=== PATIENT | female | born 1990 | race Caucasian/White ===

== ENCOUNTER 2022-11-10 15:35 | Inpatient (IN) | payer OTHER ==
[2022-11-10] MEDS ORDERED: hydrALAZINE 20 MG/ML VIAL SLOW IVP PRN ×3 (16:10→21:00)
[2022-11-10 16:37] LABS: Fetal Membranes Rupture RUPTURE DETECTED (No Rupture)
[2022-11-10 16:39] VITALS: BMI 36.2
[2022-11-10] MEDS ORDERED: Penicillin G Potassium 5 MILL.UNITS VIAL ONE (17:04)
[2022-11-10] MEDS ORDERED: Diphenoxylate HCl/Atropine Tablet PO PRN (17:43)
[2022-11-10] MEDS ORDERED: Misoprostol 200 MCG TAB PR PRN (17:43)
[2022-11-10] MEDS ORDERED: Ibuprofen 800 MG TAB PO PRN (17:43)
[2022-11-10] MEDS ORDERED: Acetaminophen 500 MG TAB PO PRN (17:43)
[2022-11-10] MEDS ORDERED: fentaNYL 50 mcg/mL 1 mL Vial SLOW IVP PRN (17:43)
[2022-11-10] MEDS ORDERED: Methylergonovine 0.2 MG/ML VIAL IM PRN (17:43)
[2022-11-10] MEDS ORDERED: Promethazine HCl 25 MG/ML VIAL IM PRN (17:43)
[2022-11-10] MEDS ORDERED: Carboprost 250 MCG/ML AMP IM PRN (17:43)
[2022-11-10] MEDS ORDERED: Tranexamic Acid 1,000 MG/10 ML VIAL IVP PRN (17:43)
[2022-11-10] MEDS ORDERED: Ondansetron PF 4 MG/2 ML Vial IVP PRN (17:43)
[2022-11-10] MEDS ORDERED: Lidocaine 1% (PF) 30 ML VIAL SC PRN (17:43)
[2022-11-10] MEDS ORDERED: NS w/ Oxytocin 30 units 500 ML IV SCH ×2 (17:45)
[2022-11-10] MEDS ORDERED: Lactated Ringer's 1,000 ML IV SCH (17:45)
[2022-11-10 18:08] LABS: Hemoglobin 12.3 g/dL (12.0-15.5); Mean Corpuscular HGB CONC 33.9 g/dL (32.0-36.0); Mean Corpuscular Hemoglobin 30.6 pg (27.0-33.0); Mean Corpuscular Volume 90.3 fl (81.6-98.3); Mean Platelet Volume 10.1 fl (7.4-10.4); Platelet Count 285 10x3/uL (150-450); RBC Distribution Width 12.9 % (11.5-14.5); Red Blood Cell (RBC) Count 4.02 10x6/uL (3.90-5.03); White Blood Cell (WBC) Count 11.5 10x3/uL (3.5-10.5)
[2022-11-10 18:28] LABS: HBSAg Index 0.15 S/CO (0-0.99); Hep B Surf Ag - L&D Non-Reactive S/CO (NonReactive)
[2022-11-10] MEDS ORDERED: fentaNYL/Ropivacaine Epidural 100 ML ONE (18:37)
[2022-11-10] MEDS ORDERED: Lanolin Ointment 7 GM TUBE TOP PRN (21:00)
[2022-11-10] MEDS ORDERED: Bisacodyl 10 MG SUPP PR PRN (21:00)
[2022-11-10] MEDS ORDERED: Boostrix 0.5 ML (Tdap) VIAL (>/=7 yrs of age) IM ONE (21:00)
[2022-11-10] MEDS ORDERED: diphenhydrAMINE 25 MG CAP PO PRN (21:00)
[2022-11-10] MEDS ORDERED: Benzocaine-Menthol 82.5 ML CAN TOP PRN (21:00)
[2022-11-10] MEDS ORDERED: Milk Of Magnesia 30 ML UDCUP PO PRN (21:00)
[2022-11-10] MEDS ORDERED: Preparation H Ointment 28 GM TUBE PR PRN (21:00)
[2022-11-11] MEDS ORDERED: traMADol HCl 50 MG TAB PO PRN (00:02)
[2022-11-11] MEDS: Docusate 100 MG CAP PO SCH ×3 (00:04→21:30)
[2022-11-11] MEDS: Ibuprofen 800 MG TAB PO SCH ×4 (00:05→21:30)
[2022-11-11] MEDS ORDERED: Bupivacaine 0.25% HCL 30 ML VIAL ONE (06:00)
[2022-11-11] MEDS ORDERED: Lidocaine 2% MPF 10 ML AMP (For Epidural Use) ONE (06:00)
[2022-11-11] MEDS: Ferrous Sulfate 325 MG TAB PO SCH ×2 (07:51→17:38)
[2022-11-11] MEDS: Prenatal Vitamin 1 TAB PO SCH (09:28)
[2022-11-12] MEDS: Ibuprofen 800 MG TAB PO SCH ×2 (05:09→14:17)
[2022-11-12] MEDS: Docusate 100 MG CAP PO SCH (07:34)
[2022-11-12] MEDS: Prenatal Vitamin 1 TAB PO SCH (07:35)
[2022-11-12 07:47] VITALS: BP 110/63; TEMP 97.6
[2022-11-12] MEDS: Ferrous Sulfate 325 MG TAB PO SCH (11:17)
[2022-11-12 13:57] LABS: Syphilis Antibody Nonreactive (Nonreactive); Syphilis Antibody Index 0.05 S/CO (<1.00 Non-Reactive)
== END 2022-11-12 16:20 | disposition home or self-care (01) | DRG 807 ==
LOC: CSHLD/OP 15:35 → CSHLD 16:42 → CSHPP 23:10
PROVIDERS: ADMIT Obstetrics & Gynecology; ATTEND Obstetrics & Gynecology
PROC: 10E0XZZ Delivery of Products of Conception, External Approach (ICD-10-PCS; principal; 2022-11-10)
PROC: 0HQ9XZZ Repair Perineum Skin, External Approach (ICD-10-PCS; 2022-11-10)
DX: O42.02 Full-term premature rupture of membranes, onset of labor within 24 hours of rupture (principal); Z37.0 Single live birth; Z3A.39 39 weeks gestation of pregnancy; O70.0 First degree perineal laceration during delivery; O99.824 Streptococcus B carrier state complicating childbirth
CPT/HCPCS: 51702; 84112; 85027; 86780; 86850; 86900; 86901; 87340; 99285; J7120; S0020